=== PATIENT | female | born 1960 | race Caucasian/White ===

== ENCOUNTER 2017-07-09 09:37 | Inpatient (IN) | payer MEDICARE, MEDICAID ==
[~2017-07-09] VITALS: Ht 165.1 cm; Wt 85.0 kg
[~2017-07-09 09:37] MED LIST: AMIT25TA PO; BUPR150T3 PO; BUSP15TA47 PO; DULO30CA PO; FLUO10TA2 PO; FLUO1TAB3 PO; FLUO20CA19 PO; GABA-282 PO; HYDR-3363 PO; IBUP-1022 PO; OMEP40CA2 PO; OXYC-517 PO; SYNT75TA PO; TRAZ50TA11 PO
[2017-07-09] MEDS ORDERED: PERC7.5T11 PO (11:44)
[2017-07-09] MEDS ORDERED: GABA800T PO (11:44)
[2017-07-09] MEDS ORDERED: LEVO75TA4 PO (11:45)
[2017-07-09 15:05] VITALS: BP 120/65
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
[2017-07-09] MEDS ORDERED: MOM 30ML SUSPENSION UDC PO PRN (17:00)
[2017-07-09] MEDS ORDERED: MAALOX 30 ML SUSP *UDC PO PRN (17:00)
[2017-07-09] MEDS: PERCOCET 5MG/325MG TAB PO SCH ×2 (17:51→21:39)
[2017-07-09] MEDS: OMEPRAZOLE 20 MG CAP PO SCH (20:59)
[2017-07-09] MEDS: GABAPENTIN 400 MG CAP PO SCH (20:59)
[2017-07-09] MEDS: DULoxetine 30 MG CAP (CYMBALTA) PO SCH (20:59)
[2017-07-09 21:00] LABS: RENAL EPITHELIAL CELLS 2 /HPF; YEAST LIKE CELL URINE AUTO LARGE
[2017-07-09] MEDS: traZODone 50 MG TAB PO PRN (22:51)
[2017-07-10] MEDS: LEVOTHYROXINE 75MCG TABLET (0.075MG) PO SCH (06:05)
[2017-07-10 06:52] VITALS: BP 120/69
[2017-07-10] MEDS: GABAPENTIN 400 MG CAP PO SCH ×2 (08:01→16:22)
[2017-07-10] MEDS: OMEPRAZOLE 20 MG CAP PO SCH (08:02)
[2017-07-10] MEDS: PERCOCET 5MG/325MG TAB PO SCH ×3 (08:04→21:00)
[2017-07-10] MEDS ORDERED: PERCOCET 5MG/325MG TAB PO SCH (09:00)
--- NOTE | 2017-07-10 10:27 | HPEPDOC ---
[facility] Medical History & Physical Date of Admission Jul 09, 2017 History and Physical PCP: Dr Devin BENDER Pain Management Dr Octavio Cadet [place] ATTENDING: Dr. Valentin Townsend HPI: 56yoF transferred from [facility] admitted to [facility] for unspecified depressive disorder, being medically examined today. Pt states she has chronic LBP which has been uncontrolled. Pain management opinion is pending. Denies any fevers, chills, weakness, fatigue, BUSH, CP, SOB, cough, palpitations, abdominal pain, N/V /D or changes in bowel or bladder habits. PMHx: Chronic back pain- followed by pain mgmt [place] -Dr Rizo. COPD Depression History of prior suicide attempt x4 GERD Hypothyroidism Insomnia Right shoulder pain-followed by orthopedic surgery- Dr Hdez/physical therapy GERD PSHX: Knee surgery Left wrist laceration repair Multiple pain management procedures/epidural procedures DCS 03/16 Dr Rizo SOCHX: Resides in: [place], [place] Marital Status: Kids: 2 Employment: Homemaker Tobacco use: Quit 6 years ago ETOH: None in past 29 years Illicit Drugs: Denies IV Drug Use: Denies Tattoos done unprofessionally: Denies FAMHX: Mother: , unknown Father: , MVA Siblings: Alive, estranged Children: Alive, depression, anxiety, heroin use Unexpected deaths due to medical reasons: None. ROS: As noted in HPI, otherwise 11pt ROS of systems reviewed and remarkable only for menopausal PE: GEN: 56 yo F, appears stated age. Well-nourished, well developed. No acute distress. Alert and oriented x 3. Pleasant, interactive. HEENT: Normocephalic, atraumatic. Pupils are equal, round, and reactive to light. Extraocular movements are intact. No nystagmus appreciated. Sclera are nonicteric. Conjunctiva without injection. Nose midline. Nasal turbinates without bogginess. EACs both patent BL. TMs both visualized and carey with good cone of light, no bulging or erythema. No facial asymmetry. Moist mucous membranes. Dentition fair. Pharynx pink and moist, no cobblestoning. Neck supple , trachea midline. No lymphadenopathy or thyromegaly appreciated. CHEST: Regular rate and rhythm, +S1, +S2 LUNGS: Clear to auscultation bilaterally. No wheezes, rales, or rhonchi. Breathing appears symmetric and easy. Patient is speaking in full sentences. No accessory muscle use. ABD: Round, soft, non-tender, non-distended. +Bowel sounds throughout. No rebound or guarding. No costovertebral angle tenderness. EXT: Pulses 2+ bilaterally dorsalis pedis and radial. No lower extremity edema appreciated. SKIN: [place], dry, warm. Capillary refill <2sec. No rashes. NEURO: Alert and oriented x 3. Cranial nerves III-XII are intact. No focal deficits appreciated. EKG: from [place]. Labs from PSYCHIATRIC. WBC 8.98 Hgb13.0 HCT 40.0 Plt 254 Gluc 102 BUN 17 SCr 0.92 Na 141 K 3.9 Cl 106 CO2 26 CA 8.9 AST 25 ALT 25 TSH 11.30 Toxicology remarkable for opiates and benzodiazepine UA trace blood and LE A&P: 55yoF admitted to [facility] for unspecified depressive disorder 1. Psych. Plan per Psychiatry. EKG on file. Check UA completed/UC pending. 2. Chronic back pain. Continue outpt regimen of gabapentin 800 mg 3 times a day , Percocet 7.5/325 one tablet 3 times a day as needed. Continue outpatient follow-up with pain management. Pain management consultation is pending. ISTOP is accessed reference number [id number] indicating last filled date 07/04/17 # 90 tablets. 3. Follow up with PCP on discharge. Dr Beltran. 4. Hypothyroidism. Continue Synthroid 75 g daily. Possible noncompliance with meds, recheck TFTs. 5. GERD. Continue Prilosec 40 mg by mouth twice a day prn. 6. Staff member Aimee present throughout examination. Vital Signs Vital Signs Date Time Temp Pulse Resp B/P (MAP) Pulse Ox O2 Delivery O2 Flow Rate FiO2 07/10/17 09:30 16 07/10/17 08:04 Room Air 07/10/17 06:52 98.2 91 120/69 (86) 07/09/17 15:05 93 Laboratory Data Labs 24H Laboratory Tests 2 07/09/17 20:35: Urine Appearance CLOUDYH, Urine Color YELLOW, Urine pH 7.0, Urine Specific Howell 1.015, Urine Protein 2+H, Urine Glucose (UA) NEGATIVE, Urine Ketones NEGATIVE, Urine Urobilinogen 4.0H, Urine Bilirubin NEGATIVE, Urine Leukocyte Esterase 3+H, Urine Blood 1+H, Urine Nitrite POSITIVE, Urine WBC (Auto) TNTCH, Urine RBC (Auto) 65H, Urine Hyaline Casts (Auto) 0, Urine Bacteria (Auto) 1+H, Urine Squamous Epithelial Cells 2, Urine Renal Epithelial Cells 2, Urine Mucus ( Auto) SMALL, Urine Yeast-Like Cells (Auto) LARGEH, Urine Sperm (Auto) Microbiology Microbiology 07/09/17 Urine Culture, Received Pending Home Medications Scheduled Gabapentin (Gabapentin) 800 Mg Tab, 800 MG PO TID Levothyroxine Sodium (Synthroid) 75 Mcg Tab, 75 MCG PO DAILY Omeprazole (Omeprazole) 40 Mg Cap, 40 MG PO BID Scheduled PRN Oxycodone/Acetaminophen (Percocet 7.5-325 mg) 1 Tab Tab, 1 TAB PO TID PRN for PAIN Allergies Coded Allergies: No Known Allergies (Unverified , 09/05/16) Christi Gracia Jul 10, 2017 10:27
--- NOTE | 2017-07-10 11:28 | MHIPNPDOC ---
[facility] Progress Note Progress Note DATE OF SERVICE: 07/10/17 HISTORY: day 2 of admission after cutting and stabbing self and stopping medications for depression. VITAL SIGNS: See below. NEW TEST RESULTS: PT evaluation completed and walker provided. Still waiting for Pain consult. CURRENT MEDICATIONS: See below. MENTAL STATUS EXAMINATION: General appearance: Patient is a 56-year old female, who appears older than her stated age, white hair, ambulates with body pitched forward, in hospital garb, good eye contact Speech: spontaneous Thought processes: goal directed Thought content: focused on pain relief Abstract reasoning and computation:fair Description of associations: good Description of abnormal or psychotic thoughts:no psychotic symptoms illicited or observed. Pt has long h/o self-mutilation when angry or depressed. Judgment: poor Insight: fair Orientation: oriented x 4 Recent and remote memory: 2/3 word recall after 5 mins, mostly intact Attention span and concentration: impaired due to pain Fund of knowledge: full. Mood: "angry", depressed Affect: congruent. DIAGNOSES: 1. Major depressive disorder without psychotic features, recurrent, severe 2. Substance use disorder in complete remission ASSESSMENT:pt is less pain due to interventions. Slept last night and eating today. Plans to attend programming. Was very sore after PT eval and resting in room, awaiting pain consultation. Attended programming in the a.m. Mood is improving. MANAGEMENT PLAN: PT consult placed, waiting for result of pain consult. Will refer to neurology on discharge. Will plan to talk with son about patients needs and concerns. TIME SPENT: 25 minutes. Vital Signs Vital Signs Date Time Temp Pulse Resp B/P (MAP) Pulse Ox O2 Delivery O2 Flow Rate FiO2 07/10/17 09:30 16 07/10/17 08:04 Room Air 07/10/17 06:52 98.2 91 120/69 (86) 07/09/17 15:05 93 Laboratory Data 24H Labs Laboratory Tests 2 07/09/17 20:35: Urine Appearance CLOUDYH, Urine Color YELLOW, Urine pH 7.0, Urine Specific Allen 1.015, Urine Protein 2+H, Urine Glucose (UA) NEGATIVE, Urine Ketones NEGATIVE, Urine Urobilinogen 4.0H, Urine Bilirubin NEGATIVE, Urine Leukocyte Esterase 3+H, Urine Blood 1+H, Urine Nitrite POSITIVE, Urine WBC (Auto) TNTCH, Urine RBC (Auto) 65H, Urine Hyaline Casts (Auto) 0, Urine Bacteria (Auto) 1+H, Urine Squamous Epithelial Cells 2, Urine Renal Epithelial Cells 2, Urine Mucus ( Auto) SMALL, Urine Yeast-Like Cells (Auto) LARGEH, Urine Sperm (Auto) Current Medications Current Medications Acetaminophen (Tylenol Tab) 650 mg Q6HP PRN PO HEADACHE or DISCOMFORT; Start 07/09/17 at 17:00; Stop 08/08/17 at 16:59 Al Hydrox/Mg Hydrox/Simethicone (Mylanta) 30 ml Q4HP PRN PO HEARTBURN/ INDIGESTION; Start 07/09/17 at 17:00; Stop 08/08/17 at 16:59 Duloxetine HCl (Cymbalta) 30 mg QHS PO Last administered on 07/09/17 20:59; Start 07/09/17 at 21:00; Stop 08/08/17 at 20:59 Gabapentin (Neurontin) 800 mg TID PO Last administered on 07/10/17 08:01; Start 07/09/17 at 21:00; Stop 08/08/17 at 20:59 Home Med (Med Rec Complete!) ASDIRECTED XX ; Start 07/09/17 at 12:30; Stop at 12:30; Status DC Levothyroxine Sodium (Synthroid) 75 mcg DAILY@06 PO Last administered on 06:05; Start 07/10/17 at 06:00; Stop 08/09/17 at 05:59 Magnesium Hydroxide (Milk Of Magnesia) 30 ml DAILYPRN PRN PO CONSTIPATION; Start 07/09/17 at 17:00; Stop 08/08/17 at 16:59 Omeprazole (PriLOSEC) 40 mg BID PO Last administered on 07/10/17 08:02; Start 07/09/17 at 21:00; Stop 08/08/17 at 20:59 Oxycodone/ Acetaminophen (Percocet 5mg/ 325mg Tablet) 1.5 tab DAILY PO ; Start 07/10/17 at 09:00; Stop 07/10/17 at 09:00; Status DC Oxycodone/ Acetaminophen (Percocet 5mg/ 325mg Tablet) 1.5 tab TID PO Last administered on 07/10/17 08:04; Start 07/09/17 at 16:00; Stop 07/10/17 at 21 :01 Trazodone HCl (Desyrel) 50 mg QHSP PRN PO INSOMNIA Last administered on t 22:51; Start 07/09/17 at 17:00; Stop 08/08/17 at 16:59 Allergies Coded Allergies: No Known Allergies (Unverified , 09/05/16) Madison Lugo Jul 10, 2017 11:28
[2017-07-10 18:00] VITALS: BP 130/88
--- NOTE | 2017-07-10 18:01 | CR ---
DATE OF CONSULTATION: 07/10/2017 REFERRING PHYSICIAN: MARE Davison CHIEF COMPLAINT: Right buttock pain. HISTORY OF PRESENT ILLNESS: Lynn is a 56-year-old female with a long history of low back pain with right leg radicular symptoms. Has been receiving opioid pain medicine management and injection therapy with Dr. Stephens in [place]. States she was doing fairly well until about 2 months ago. States she had a right piriformis muscle injection and had a severe increase in right buttock pain. Pain is aggravated with ambulation. Pain is relieved somewhat with pain medication and lying on her left side. Rating pain level laying on her left side 7/10, VAS. Denies recent fever or illness. Denies bowel or bladder incontinence. PAST MEDICAL HISTORY: 1. Hypothyroidism. 2. Chronic back pain. 3. Depression. 4. COPD. 5. Prior suicide attempt times four. 6. GERD. 7. Right shoulder pain. PAST SURGICAL HISTORY: Knee surgery, and left wrist laceration repair. SOCIAL HISTORY: The patient lives in [place], [place]. She is a homemaker. Quit smoking 6 years ago. She is . She has two children. Stopped use of alcohol 29 years ago. Denies illicit drug use. FAMILY HISTORY: Mother and father . Children are alive but with a history of heroin use and depression / anxiety. REVIEW OF SYSTEMS: 11-point review of systems is negative except for what was described in HPI. PHYSICAL EXAMINATION: Awake, alert. Appears comfortable at rest. Vital signs: 98.2, 91, 18, BP 120/69. Cardiac, S1-S2. Normal rate and rhythm. Respiratory - lung sounds clear. Respirations nonlabored. Neuromuscular muscle strength over the lower extremities is 5/5. Muscle strength testing of the lower extremities produces increase in right low back pain. Inspection of spine, marked tenderness over the right mid buttock area. Nontender with palpation over LS axis and lumbar paraspinal. ASSESSMENT: Acute right piriformis muscle pain status post piriformis injection 2 months ago. PLAN: I would recommend adding muscle relaxant tizanidine 4 mg every 4 hours as needed for severe pain episodes. Consider CT of the right buttock region. Continue current chronic pain medication of oxycodone 5 mg 1.5 tablets three times a day. Continue gabapentin 800 three times a day. Continue Cymbalta 30 mg every night. Thank you for allowing us to participate in the care of your patient Lynn Dong. If you have any questions or concerns please do not hesitate to contact us. Sincerely, Thelma Michele Family nurse practitioner, pain management center. NICOLE
[2017-07-11] MEDS: GABAPENTIN 400 MG CAP PO SCH ×4 (00:08→20:22)
[2017-07-11] MEDS: OMEPRAZOLE 20 MG CAP PO SCH ×3 (00:09→20:23)
[2017-07-11] MEDS: ACETAMINOPHEN TAB 650MG DOSE (2X325MG) PO PRN ×2 (00:09→20:23)
[2017-07-11] MEDS: DULoxetine 30 MG CAP (CYMBALTA) PO SCH ×3 (00:09→20:23)
[2017-07-11] MEDS: LEVOTHYROXINE 75MCG TABLET (0.075MG) PO SCH (06:10)
[2017-07-11 06:33] VITALS: BP 117/63
[2017-07-11 08:10] LABS: THYROXINE (T4) 8.5 UG/DL (4.5-12.0)
[2017-07-11] MEDS: tiZANidine 4 MG TAB PO PRN ×3 (09:12→22:55)
[2017-07-11] MEDS: PERCOCET 5MG/325MG TAB PO SCH ×3 (09:15→22:56)
--- NOTE | 2017-07-11 14:07 | MHIPNPDOC ---
[facility] Progress Note Progress Note DATE OF SERVICE: 07/11/17 HISTORY: day 3 of admission for self-harm and exacerbation of depressive disorder VITAL SIGNS: See below. NEW TEST RESULTS: Pain Consult completed: ASSESSMENT: Acute right piriformis muscle pain status post piriformis injection 2 months ago. PLAN: I would recommend adding muscle relaxant tizanidine 4 mg every 4 hours as needed for severe pain episodes. Consider CT of the right buttock region. Continue current chronic pain medication of oxycodone 5 mg 1.5 tablets three times a day. Continue gabapentin 800 three times a day. Continue Cymbalta 30 mg every night. Thank you for allowing us to participate in the care of your patient Lnyn Dong. If you have any questions or concerns please do not hesitate to contact us. Sincerely, Thelma Michele Family nurse practitioner, pain management center. DD: Thelma Michele N.P. 07/10/171736 DT: BREE 07/10/171750 CURRENT MEDICATIONS: See below. MENTAL STATUS EXAMINATION: General appearance: Patient is a 56-year old female, who appears older than her stated age, white hair, ambulates with body pitched forward, in hospital garb, good eye contact Speech: spontaneous Thought processes: goal directed Thought content: focused on pain relief Abstract reasoning and computation:fair Description of associations: good Description of abnormal or psychotic thoughts:no psychotic symptoms illicited or observed. Pt has long h/o self-mutilation when angry or depressed. Judgment: poor Insight: fair Orientation: oriented x 4 Recent and remote memory: 2/3 word recall after 5 mins, mostly intact Attention span and concentration: impaired due to pain Fund of knowledge: full. Mood: "angry", depressed Affect: congruent. DIAGNOSES: 1. Major depressive disorder without psychotic features, recurrent, severe 2. Substance use disorder in complete remission 3. Acute Pain. ASSESSMENT:pt in severe pain at start of shift. Pain consult completed, results reviewed and implemented to assist pt in returning to wellness. Orders written for pain meds as recommended by the specialist. Pt assisted with morning meal and within 30 mins was able to attend treatment planning meeting even though she could not sit on her right buttock. pain 07/09. Pt signed MAE for son Leon at [phone]. Call placed and answered by a young male who indicated Leon was not at home. Message and return phone number left. No return call by end of the day. Pt feeling better at 1 p.m. but still not ambulating or able to attend groups due to pain. MANAGEMENT PLAN: continue meds, close observation and enc pt involvement in milieu. Support independence. increase Cymbalta to 30 mg bid. TIME SPENT: 25 minutes. Vital Signs Vital Signs Date Time Temp Pulse Resp B/P (MAP) Pulse Ox O2 Delivery O2 Flow Rate FiO2 07/11/17 09:50 16 07/11/17 06:33 98.1 84 117/63 (81) 07/10/17 08:04 Room Air 07/09/17 15:05 93 Laboratory Data 24H Labs Laboratory Tests 2 07/11/17 07:17: Thyroid Stimulating Hormone (TSH) 2.470, Free Thyroxine Index 2.8, Thyroxine (T4 ) 8.5, Triiodothyronine (T3) Uptake 33 Current Medications Current Medications Acetaminophen (Tylenol Tab) 650 mg Q6HP PRN PO HEADACHE or DISCOMFORT Last administered on 07/11/17 00:09; Start 07/09/17 at 17:00; Stop 08/08/17 at 16: 59 Al Hydrox/Mg Hydrox/Simethicone (Mylanta) 30 ml Q4HP PRN PO HEARTBURN/ INDIGESTION; Start 07/09/17 at 17:00; Stop 08/08/17 at 16:59 Duloxetine HCl (Cymbalta) 30 mg QHS PO Last administered on 07/11/17 00:09; Start 07/09/17 at 21:00; Stop 08/08/17 at 20:59 Gabapentin (Neurontin) 800 mg TID PO Last administered on 07/11/17 09:12; Start 07/09/17 at 21:00; Stop 08/08/17 at 20:59 Home Med (Med Rec Complete!) ASDIRECTED XX ; Start 07/09/17 at 12:30; Stop at 12:30; Status DC Levothyroxine Sodium (Synthroid) 75 mcg DAILY@06 PO Last administered on 06:10; Start 07/10/17 at 06:00; Stop 08/09/17 at 05:59 Magnesium Hydroxide (Milk Of Magnesia) 30 ml DAILYPRN PRN PO CONSTIPATION; Start 07/09/17 at 17:00; Stop 08/08/17 at 16:59 Omeprazole (PriLOSEC) 40 mg BID PO Last administered on 07/11/17 09:12; Start 07/09/17 at 21:00; Stop 08/08/17 at 20:59 Oxycodone/ Acetaminophen (Percocet 5mg/ 325mg Tablet) 1.5 tab DAILY PO ; Start 07/10/17 at 09:00; Stop 07/10/17 at 09:00; Status DC Oxycodone/ Acetaminophen (Percocet 5mg/ 325mg Tablet) 1.5 tab TID PO Last administered on 07/10/17 16:22; Start 07/09/17 at 16:00; Stop 07/10/17 at 21 :01; Status DC Oxycodone/ Acetaminophen (Percocet 5mg/ 325mg Tablet) 1.5 tab TID PO Last administered on 07/11/17 09:15; Start 07/11/17 at 09:00; Stop 07/18/17 at 08 :59 Tizanidine HCl (Zanaflex) 4 mg Q4HP PRN PO pain/spasm Last administered on 13:13; Start 07/11/17 at 09:00; Stop 08/10/17 at 08:59 Trazodone HCl (Desyrel) 50 mg QHSP PRN PO INSOMNIA Last administered on 22:51; Start 07/09/17 at 17:00; Stop 08/08/17 at 16:59 Allergies Coded Allergies: No Known Allergies (Unverified , 09/05/16) Madison Lugo Jul 11, 2017 14:07
[2017-07-11 18:47] VITALS: BP 108/55
[2017-07-12] MEDS: LEVOTHYROXINE 75MCG TABLET (0.075MG) PO SCH (06:12)
[2017-07-12 06:57] VITALS: BP 118/61
[2017-07-12] MEDS: OMEPRAZOLE 20 MG CAP PO SCH ×2 (08:03→22:36)
[2017-07-12] MEDS: GABAPENTIN 400 MG CAP PO SCH ×3 (08:03→22:39)
[2017-07-12] MEDS: PERCOCET 5MG/325MG TAB PO SCH ×3 (08:03→22:39)
[2017-07-12] MEDS: DULoxetine 30 MG CAP (CYMBALTA) PO SCH ×2 (08:03→22:39)
--- NOTE | 2017-07-12 08:55 | MHIPNPDOC ---
[facility] Progress Note Progress Note DATE OF SERVICE: 07/12/17 HISTORY: day 4 of admission for self-harm and decompensation after stopping medication. VITAL SIGNS: See below. NEW TEST RESULTS: UA negative CURRENT MEDICATIONS: See below. MENTAL STATUS EXAMINATION: General appearance: Patient is a 56-year old female, who appears older than her stated age, white hair, ambulates with body pitched forward, in hospital garb, good eye contact Speech: spontaneous Thought processes: goal directed Thought content: focused on pain relief Abstract reasoning and computation:fair Description of associations: good Description of abnormal or psychotic thoughts:no psychotic symptoms illicited or observed. Pt has long h/o self-mutilation when angry or depressed. Judgment: poor Insight: fair Orientation: oriented x 4 Recent and remote memory: 2/3 word recall after 5 mins, mostly intact Attention span and concentration: impaired due to pain Fund of knowledge: full. Mood: "angry", depressed Affect: congruent. DIAGNOSES: 1. Major depressive disorder without psychotic features, recurrent, severe 2. Substance use disorder in complete remission 3. Acute Pain. ASSESSMENT:Lynn reports a good night of rest last night. She has her leg/hip elevated with pillows and is more comfortable. She has c/o symptoms of burning on urination however UA was neg on 07/11 and 07/09. Instructed to follow up with PCP after discharge. Enc more fluids. Pt is tolerating increase in Cymbalta. Is able to identify benefit to medication. Pt has been out of bed and in the milieu as much as tolerated. She was provided a rolling walker to use while she is here which has improved her ambulation. On my 3rd attempt to speak with Lynn's son ticket writer was successful. All comments were prefaced with providing feedback to help improve the situation for Lynn and keep her from harming herself again. Son Leon became very defensive without cause and his tone kept getting increasingly louder until he was yelling and telling me about his health issues. I had only mentioned the need for dishes to be done quickly, to which he replied, "she can get up and do it herself'. He stated Lynn uses her pain as an excuse to not do things and stated "my and I do everything for her". When AA meetings were mentioned he immediately said there was nothing he could do to help with that as he does not have a vehicle. "She will have to take care of that". Then it was mentioned about her returning to [facility] and the importance of her taking her medication and staying on it consistently he became so upset he was yelling. Clip And Hanger Attacher asked him to lower his voice and began to talk very softly at which time Leon handed phone to a female but since ticket writer does not have a release for the female , the conversation could not continue. Leon could be heard saying "hang up the phone". When female got on the line she said that Leon just talks loud. It was clear he was having anger control problems and did not want any feedback from his mother's care givers. the matter of the stolen medication was never brought up. MANAGEMENT PLAN: continue Cymbalta titration. Pt will need neurology appt after discharge for 2nd opinion regarding her sciatic pain. Pt is referred for Case Mgt services as she needs to increase her access to social activities she once enjoyed. Family did not return ticket writer's call from yesterday. Will make another attempt to talk with son Leon. Case mgt services will be necessary for Lynn to have the support she needs that her family is unable to provide. Pt requested BuSpar be added to her med regime as she found it helpful in the past. Will begin med at 10 mg TID. TIME SPENT: 25 minutes. Vital Signs Vital Signs Date Time Temp Pulse Resp B/P (MAP) Pulse Ox O2 Delivery O2 Flow Rate FiO2 07/12/17 08:03 16 07/12/17 06:57 97.7 75 118/61 (80) 07/10/17 08:04 Room Air 07/09/17 15:05 93 Laboratory Data 24H Labs Laboratory Tests 2 07/11/17 16:50: Urine Appearance CLOUDYH, Urine Color YELLOW, Urine pH 5.0, Urine Specific [place] 1.025, Urine Protein 2+H, Urine Glucose (UA) NEGATIVE, Urine Ketones NEGATIVE, Urine Urobilinogen 2.0H, Urine Bilirubin NEGATIVE, Urine Leukocyte Esterase 3+H, Urine Blood 2+H, Urine Nitrite NEGATIVE, Urine WBC (Auto) TNTCH, Urine RBC (Auto) 84H, Urine Hyaline Casts (Auto) 0, Urine Bacteria (Auto) 1+H, Urine Squamous Epithelial Cells 1, Urine Amorphous Sediment SMALLH, Urine Mucus (Auto) SMALL, Urine Sperm (Auto) Current Medications Current Medications Acetaminophen (Tylenol Tab) 650 mg Q6HP PRN PO HEADACHE or DISCOMFORT Last administered on 07/11/17 20:23; Start 07/09/17 at 17:00; Stop 08/08/17 at 16: 59 Al Hydrox/Mg Hydrox/Simethicone (Mylanta) 30 ml Q4HP PRN PO HEARTBURN/ INDIGESTION; Start 07/09/17 at 17:00; Stop 08/08/17 at 16:59 Cefdinir (Omnicef) 300 mg BID PO ; Start 07/12/17 at 09:00; Stop 07/19/17 at 08:59; Status UNV Duloxetine HCl (Cymbalta) 30 mg BID PO Last administered on 07/12/17 08:03; Start 07/11/17 at 09:00; Stop 08/08/17 at 08:59 Duloxetine HCl (Cymbalta) 30 mg QHS PO Last administered on 07/11/17 00:09; Start 07/09/17 at 21:00; Stop 07/11/17 at 14:24; Status DC Gabapentin (Neurontin) 800 mg TID PO Last administered on 07/12/17 08:03; Start 07/09/17 at 21:00; Stop 08/08/17 at 20:59 Home Med (Med Rec Complete!) ASDIRECTED XX ; Start 07/09/17 at 12:30; Stop at 12:30; Status DC Levothyroxine Sodium (Synthroid) 75 mcg DAILY@06 PO Last administered on 06:12; Start 07/10/17 at 06:00; Stop 08/09/17 at 05:59 Magnesium Hydroxide (Milk Of Magnesia) 30 ml DAILYPRN PRN PO CONSTIPATION; Start 07/09/17 at 17:00; Stop 08/08/17 at 16:59 Omeprazole (PriLOSEC) 40 mg BID PO Last administered on 07/12/17 08:03; Start 07/09/17 at 21:00; Stop 08/08/17 at 20:59 Oxycodone/ Acetaminophen (Percocet 5mg/ 325mg Tablet) 1.5 tab DAILY PO ; Start 07/10/17 at 09:00; Stop 07/10/17 at 09:00; Status DC Oxycodone/ Acetaminophen (Percocet 5mg/ 325mg Tablet) 1.5 tab TID PO Last administered on 07/10/17 16:22; Start 07/09/17 at 16:00; Stop 07/10/17 at 21 :01; Status DC Oxycodone/ Acetaminophen (Percocet 5mg/ 325mg Tablet) 1.5 tab TID PO Last administered on 07/12/17 08:03; Start 07/11/17 at 09:00; Stop 07/18/17 at 08 :59 Tizanidine HCl (Zanaflex) 4 mg Q4HP PRN PO pain/spasm Last administered on 22:55; Start 07/11/17 at 09:00; Stop 08/10/17 at 08:59 Trazodone HCl (Desyrel) 50 mg QHSP PRN PO INSOMNIA Last administered on 22:51; Start 07/09/17 at 17:00; Stop 08/08/17 at 16:59 Allergies Coded Allergies: No Known Allergies (Unverified , 09/05/16) Madison Lugo Jul 12, 2017 08:55
[2017-07-12] MEDS: CEFDINIR 300 MG CAP (OMNICEF) PO SCH ×2 (10:31→22:39)
[2017-07-12] MEDS: tiZANidine 4 MG TAB PO PRN ×3 (10:33→22:39)
[2017-07-12] MEDS: busPIRone 10 MG TAB PO SCH ×2 (16:13→22:39)
[2017-07-12 18:00] VITALS: BP 128/73
[2017-07-12] MEDS: traZODone 50 MG TAB PO PRN (22:42)
[2017-07-12] MEDS: ALBUTEROL 90 MCG/ACT 8GM HFA INHALER INH PRN (22:55)
[2017-07-13] MEDS: LEVOTHYROXINE 75MCG TABLET (0.075MG) PO SCH (06:21)
[2017-07-13 06:56] VITALS: BP 134/78
[2017-07-13] MEDS: PERCOCET 5MG/325MG TAB PO SCH ×3 (08:08→20:23)
[2017-07-13] MEDS: CEFDINIR 300 MG CAP (OMNICEF) PO SCH ×2 (08:08→20:22)
[2017-07-13] MEDS: tiZANidine 4 MG TAB PO PRN ×2 (08:08→16:09)
[2017-07-13] MEDS: DULoxetine 30 MG CAP (CYMBALTA) PO SCH ×2 (08:08→20:22)
[2017-07-13] MEDS: busPIRone 10 MG TAB PO SCH ×3 (08:08→20:22)
[2017-07-13] MEDS: OMEPRAZOLE 20 MG CAP PO SCH ×2 (08:08→20:21)
[2017-07-13] MEDS: GABAPENTIN 400 MG CAP PO SCH ×3 (08:09→20:22)
[2017-07-13] MEDS: PHENAZOPYRIDINE 100 MG TAB PO SCH ×3 (10:25→20:22)
[2017-07-13] MEDS: ALBUTEROL 90 MCG/ACT 8GM HFA INHALER INH PRN (16:09)
[2017-07-13 18:00] VITALS: BP 129/70
[2017-07-13] MEDS ORDERED: ALBUTEROL SULFATE 2.5 MG/0.5 ML INH NEB SOLN INH SCH (21:00)
[2017-07-13] MEDS: traZODone 100 MG TAB PO PRN (22:04)
--- NOTE | 2017-07-13 22:07 | MHIPN ---
DATE: 07/13/2017 SUBJECTIVE: The patient states that she continues to be very depressed, feels hopeless and helpless. She tells me "I will be in this pain for the rest of my life." She state "I don't like myself and I don't think people like me." MENTAL STATUS EXAMINATION: This patient is alert and oriented times three. Eye contact is fair. Psychomotor activity is decreased. Verbally spontaneous. No formal thought disorder noted. Mood is depressed. Affect full range and appropriate. She is not psychotic, suicidal, or homicidal. Concentration is fair. Memory is intact. Insight and judgment are fair. DIAGNOSES: 1. Major depressive disorder without psychotic features, recurrent, severe. 2. Substance abuse disorder, in complete remission. TREATMENT PLAN: At this point, we will continue to monitor the patient for ongoing pretty severe depression. We will continue to titrate her medications as indicated. We will continue to monitor her for continued resolution of suicidal ideation. NICOLE
[2017-07-14] MEDS: LEVOTHYROXINE 75MCG TABLET (0.075MG) PO SCH (06:13)
[2017-07-14 06:58] VITALS: BP 135/65
[2017-07-14] MEDS: CEFDINIR 300 MG CAP (OMNICEF) PO SCH ×2 (08:21→21:14)
[2017-07-14] MEDS: GABAPENTIN 400 MG CAP PO SCH ×3 (08:21→21:14)
[2017-07-14] MEDS: PHENAZOPYRIDINE 100 MG TAB PO SCH ×3 (08:21→21:14)
[2017-07-14] MEDS: OMEPRAZOLE 20 MG CAP PO SCH ×2 (08:22→21:15)
[2017-07-14] MEDS: busPIRone 10 MG TAB PO SCH ×3 (08:22→21:14)
[2017-07-14] MEDS: tiZANidine 4 MG TAB PO PRN ×3 (08:22→21:16)
[2017-07-14] MEDS: DULoxetine 30 MG CAP (CYMBALTA) PO SCH ×2 (08:22→21:14)
[2017-07-14] MEDS: PERCOCET 5MG/325MG TAB PO SCH ×3 (08:24→21:15)
[2017-07-14] MEDS: IBUPROFEN 400 MG TAB PO PRN (13:44)
[2017-07-14] MEDS: ALBUTEROL SULFATE 2.5 MG/0.5 ML INH NEB SOLN INH PRN ×2 (15:02→22:38)
[2017-07-14 18:00] VITALS: BP 128/59
[2017-07-15 06:40] VITALS: BP 147/60
[2017-07-15] MEDS: LEVOTHYROXINE 75MCG TABLET (0.075MG) PO SCH (06:47)
[2017-07-15] MEDS: GABAPENTIN 400 MG CAP PO SCH ×3 (08:07→20:14)
[2017-07-15] MEDS: PERCOCET 5MG/325MG TAB PO SCH ×3 (08:08→20:15)
[2017-07-15] MEDS: tiZANidine 4 MG TAB PO PRN ×2 (08:08→20:15)
[2017-07-15] MEDS: DULoxetine 30 MG CAP (CYMBALTA) PO SCH ×2 (08:08→20:14)
[2017-07-15] MEDS: CEFDINIR 300 MG CAP (OMNICEF) PO SCH ×2 (08:08→20:14)
[2017-07-15] MEDS: busPIRone 10 MG TAB PO SCH ×3 (08:08→20:14)
[2017-07-15] MEDS: OMEPRAZOLE 20 MG CAP PO SCH ×2 (08:09→20:14)
--- NOTE | 2017-07-15 12:06 | MHIPNPDOC ---
[facility] Progress Note Progress Note DATE OF SERVICE: 07/15/17 HISTORY: day 7 of admission for going off antidepressant and actions of self- harm due to anger related to things going on in her household. VITAL SIGNS: See below. NEW TEST RESULTS: na. CURRENT MEDICATIONS: See below. MENTAL STATUS EXAMINATION: General appearance: Patient is a 56-year old female, who appears older than her stated age, long, white hair, ambulates with walker in hospital garb, good eye contact Speech: spontaneous Thought processes: goal directed Thought content: focused on pain relief Abstract reasoning and computation:fair Description of associations: good Description of abnormal or psychotic thoughts:no psychotic symptoms illicited or observed. Pt has long h/o self-mutilation when angry or depressed. Judgment: poor Insight: fair Orientation: oriented x 4 Recent and remote memory: 2/3 word recall after 5 mins, mostly intact Attention span and concentration: impaired due to pain Fund of knowledge: full. Mood: "pretty good". Affect: congruent. DIAGNOSES: 1. Major depressive disorder without psychotic features, recurrent, severe 2. Substance use disorder in complete remission 3. Acute Pain. ASSESSMENT:Met with Lynn for 1:1. She reports having a pretty good weekend. She is using a pillow to sit on which helps sometimes along with the pain meds and the walker. Assured pt I would provide a prescription for a walker on discharge. Discussed medications and reviewed doses, purpose and expected benefits. She appears much more calm and at ease than last week. Explained my efforts in explaining to the son what was going on and his inability to participate in the conversation. Explained main intention of call and that the subject of the grandson and his behavior was never discussed. Son had explained to Lynn that I hung upon them but that was not the case. He was in the back ground telling the to hang up and eventually she did, I was the last one to hand up the phone. Discussed with pt that if she wants son and to remain in her house she may need to make peace with the fact they are going to do the cleaning on their time. We discussed options for getting out to socialize and Lynn knows she can get a ride to a meeting at least once a week. She is also interested in the senior dances in her city. She thinks she can afford a cab to take her too and from some activities like Bingo. She was given information on Uber and Ly[employer] if available in her area. MANAGEMENT PLAN: we will plan to discharge on Saturday or via Medicaid cab when she is ready. Pt is requesting a referral to neurology and we will attempt to get her an appt in [place]. TIME SPENT: 25 minutes. Vital Signs Vital Signs Date Time Temp Pulse Resp B/P (MAP) Pulse Ox O2 Delivery O2 Flow Rate FiO2 07/15/17 09:00 18 07/15/17 06:40 98.6 70 147/60 (89) Room Air 07/09/17 15:05 93 Current Medications Current Medications Acetaminophen (Tylenol Tab) 650 mg Q6HP PRN PO HEADACHE or DISCOMFORT Last administered on 07/11/17 20:23; Start 07/09/17 at 17:00; Stop 07/13/17 at 13 :31; Status DC Al Hydrox/Mg Hydrox/Simethicone (Mylanta) 30 ml Q4HP PRN PO HEARTBURN/ INDIGESTION; Start 07/09/17 at 17:00; Stop 08/08/17 at 16:59 Albuterol Sulfate (Proventil Neb) 2.5 mg BIDP PRN INH SHORTNESS OF BREATH Last administered on 07/14/17 22:38; Start 07/14/17 at 14:53; Stop 08/13/17 at 14 :52 Albuterol Sulfate (Proventil Neb) 2.5 mg QHS INH Last administered on 21:23; Start 07/13/17 at 21:00; Stop 07/14/17 at 14:55; Status DC Albuterol Sulfate (Proventil, Ventolin Hfa) 2 puff Q6HP PRN INH WHEEZING Last administered on 07/13/17 16:09; Start 07/12/17 at 21:45; Stop 08/11/17 at 21 :44 Buspirone HCl (Buspar) 10 mg TID PO Last administered on 07/15/17 08:08; Start 07/12/17 at 16:00; Stop 08/11/17 at 15:59 Cefdinir (Omnicef) 300 mg BID PO Last administered on 07/15/17 08:08; Start 07/12/17 at 09:00; Stop 07/21/17 at 21:01 Duloxetine HCl (Cymbalta) 30 mg BID PO Last administered on 07/15/17 08:08; Start 07/11/17 at 09:00; Stop 08/08/17 at 08:59 Duloxetine HCl (Cymbalta) 30 mg QHS PO Last administered on 07/11/17 00:09; Start 07/09/17 at 21:00; Stop 07/11/17 at 14:24; Status DC Gabapentin (Neurontin) 800 mg TID PO Last administered on 07/15/17 08:07; Start 07/09/17 at 21:00; Stop 08/08/17 at 20:59 Home Med (Med Rec Complete!) ASDIRECTED XX ; Start 07/09/17 at 12:30; Stop at 12:30; Status DC Ibuprofen (Advil) 400 mg Q4HP PRN PO PAIN Last administered on 07/14/17 13:44 ; Start 07/13/17 at 13:30; Stop 08/12/17 at 13:29 Levothyroxine Sodium (Synthroid) 75 mcg DAILY@06 PO Last administered on 06:47; Start 07/10/17 at 06:00; Stop 08/09/17 at 05:59 Magnesium Hydroxide (Milk Of Magnesia) 30 ml DAILYPRN PRN PO CONSTIPATION; Start 07/09/17 at 17:00; Stop 08/08/17 at 16:59 Omeprazole (PriLOSEC) 40 mg BID PO Last administered on 07/15/17 08:09; Start 07/09/17 at 21:00; Stop 08/08/17 at 20:59 Oxycodone/ Acetaminophen (Percocet 5mg/ 325mg Tablet) 1.5 tab DAILY PO ; Start 07/10/17 at 09:00; Stop 07/10/17 at 09:00; Status DC Oxycodone/ Acetaminophen (Percocet 5mg/ 325mg Tablet) 1.5 tab TID PO Last administered on 07/10/17 16:22; Start 07/09/17 at 16:00; Stop 07/10/17 at 21 :01; Status DC Oxycodone/ Acetaminophen (Percocet 5mg/ 325mg Tablet) 1.5 tab TID PO Last administered on 07/15/17 08:08; Start 07/11/17 at 09:00; Stop 07/18/17 at 08 :59 Phenazopyridine HCl (Pyridium) 100 mg TID PO Last administered on 07/14/17 21 :14; Start 07/13/17 at 09:00; Stop 07/14/17 at 21:01; Status DC Tizanidine HCl (Zanaflex) 4 mg Q4HP PRN PO pain/spasm Last administered on 08:08; Start 07/11/17 at 09:00; Stop 08/10/17 at 08:59 Trazodone HCl (Desyrel) 50 mg QHSP PRN PO INSOMNIA Last administered on 22:42; Start 07/09/17 at 17:00; Stop 07/13/17 at 13:31; Status DC Trazodone HCl (Desyrel) 100 mg QHSP PRN PO INSOMNIA Last administered on 22:04; Start 07/13/17 at 13:30; Stop 08/12/17 at 13:29 Allergies Coded Allergies: No Known Allergies (Unverified , 09/05/16) Madison Lugo Jul 15, 2017 12:06
[2017-07-15 18:00] VITALS: BP 112/61
[2017-07-15] MEDS: traZODone 100 MG TAB PO PRN (21:32)
[2017-07-15] MEDS: IBUPROFEN 400 MG TAB PO PRN (21:35)
[2017-07-16] MEDS: LEVOTHYROXINE 75MCG TABLET (0.075MG) PO SCH (06:07)
[2017-07-16 06:43] VITALS: BP 117/79
[2017-07-16] MEDS: GABAPENTIN 400 MG CAP PO SCH ×3 (08:49→20:03)
[2017-07-16] MEDS: DULoxetine 30 MG CAP (CYMBALTA) PO SCH ×2 (08:49→20:03)
[2017-07-16] MEDS: OMEPRAZOLE 20 MG CAP PO SCH ×2 (08:49→20:03)
[2017-07-16] MEDS: CEFDINIR 300 MG CAP (OMNICEF) PO SCH ×2 (08:49→20:03)
[2017-07-16] MEDS: busPIRone 10 MG TAB PO SCH ×3 (08:49→20:03)
[2017-07-16] MEDS: PERCOCET 5MG/325MG TAB PO SCH ×3 (08:51→20:06)
--- NOTE | 2017-07-16 09:26 | MHIPNPDOC ---
[facility] Progress Note Progress Note DATE OF SERVICE: 07/16/17 HISTORY: day 8 of admission for self-mutilation and SI, noncompliance with treatment. VITAL SIGNS: See below. NEW TEST RESULTS: na CURRENT MEDICATIONS: See below. MENTAL STATUS EXAMINATION: General appearance: Patient is a 56-year old female, who appears older than her stated age, long, white hair, ambulates with walker in hospital garb, good eye contact Speech: spontaneous Thought processes: goal directed Thought content: focused on pain relief Abstract reasoning and computation:fair Description of associations: good Description of abnormal or psychotic thoughts:no psychotic symptoms illicited or observed. Pt has long h/o self-mutilation when angry or depressed. Judgment: poor Insight: fair Orientation: oriented x 4 Recent and remote memory: 2/3 word recall after 5 mins, mostly intact Attention span and concentration: impaired due to pain Fund of knowledge: full. Mood: "doing good" Affect: congruent. DIAGNOSES: 1. Major depressive disorder without psychotic features, recurrent, severe 2. Substance use disorder in complete remission 3. Acute Pain. ASSESSMENT:pt is visible in milieu, ambulating with more comfort by using rolling walker. Pt is attentive to personal needs. Appetite and sleep are both improving. She is getting along well with peers and particularly has been helpful to her roommate. Mood is stabilizing and pt demonstrates much more control over behavior than we saw upon admission. MANAGEMENT PLAN: Anticipate discharge tomorrow. Wounds are healing well. Pt has good plans for treatment adherence and more socialization in her life. Neurology consult for [place] neurologist entered for second opinion regarding acute right piriformis muscle pain s/p piriformis injection 2 months ago. TIME SPENT: 25 minutes. Vital Signs Vital Signs Date Time Temp Pulse Resp B/P (MAP) Pulse Ox O2 Delivery O2 Flow Rate FiO2 07/16/17 08:51 16 07/16/17 06:43 97.5 78 117/79 (92) 07/15/17 06:40 Room Air Current Medications Current Medications Acetaminophen (Tylenol Tab) 650 mg Q6HP PRN PO HEADACHE or DISCOMFORT Last administered on 07/11/17t 20:23; Start 07/09/17 at 17:00; Stop 07/13/17 at 13 :31; Status DC Al Hydrox/Mg Hydrox/Simethicone (Mylanta) 30 ml Q4HP PRN PO HEARTBURN/ INDIGESTION; Start 07/09/17 at 17:00; Stop 08/08/17 at 16:59 Albuterol Sulfate (Proventil Neb) 2.5 mg BIDP PRN INH SHORTNESS OF BREATH Last administered on 07/14/17 22:38; Start 07/14/17 at 14:53; Stop 08/13/17 at 14 :52 Albuterol Sulfate (Proventil Neb) 2.5 mg QHS INH Last administered on 21:23; Start 07/13/17 at 21:00; Stop 07/14/17 at 14:55; Status DC Albuterol Sulfate (Proventil, Ventolin Hfa) 2 puff Q6HP PRN INH WHEEZING Last administered on 07/13/17 16:09; Start 07/12/17 at 21:45; Stop 08/11/17 at 21 :44 Buspirone HCl (Buspar) 10 mg TID PO Last administered on 07/16/17 08:49; Start 07/12/17 at 16:00; Stop 08/11/17 at 15:59 Cefdinir (Omnicef) 300 mg BID PO Last administered on 07/16/17 08:49; Start 07/12/17 at 09:00; Stop 07/21/17 at 21:01 Duloxetine HCl (Cymbalta) 30 mg BID PO Last administered on 07/15/17 08:08; Start 07/11/17 at 09:00; Stop 07/15/17 at 12:00; Status DC Duloxetine HCl (Cymbalta) 30 mg QAM PO Last administered on 07/16/17 08:49; Start 07/16/17 at 09:00; Stop 08/15/17 at 08:59 Duloxetine HCl (Cymbalta) 30 mg QHS PO Last administered on 07/11/17 00:09; Start 07/09/17 at 21:00; Stop 07/11/17 at 14:24; Status DC Duloxetine HCl (Cymbalta) 60 mg QHS PO Last administered on 07/15/17 20:14; Start 07/15/17 at 21:00; Stop 08/14/17 at 20:59 Gabapentin (Neurontin) 800 mg TID PO Last administered on 07/16/17 08:49; Start 07/09/17 at 21:00; Stop 08/08/17 at 20:59 Home Med (Med Rec Complete!) ASDIRECTED XX ; Start 07/09/17 at 12:30; Stop at 12:30; Status DC Ibuprofen (Advil) 400 mg Q4HP PRN PO PAIN Last administered on 07/15/17 21:35 ; Start 07/13/17 at 13:30; Stop 08/12/17 at 13:29 Levothyroxine Sodium (Synthroid) 75 mcg DAILY@06 PO Last administered on 06:07; Start 07/10/17 at 06:00; Stop 08/09/17 at 05:59 Magnesium Hydroxide (Milk Of Magnesia) 30 ml DAILYPRN PRN PO CONSTIPATION; Start 07/09/17 at 17:00; Stop 08/08/17 at 16:59 Omeprazole (PriLOSEC) 40 mg BID PO Last administered on 07/16/17 08:49; Start 07/09/17 at 21:00; Stop 08/08/17 at 20:59 Oxycodone/ Acetaminophen (Percocet 5mg/ 325mg Tablet) 1.5 tab DAILY PO ; Start 07/10/17 at 09:00; Stop 07/10/17 at 09:00; Status DC Oxycodone/ Acetaminophen (Percocet 5mg/ 325mg Tablet) 1.5 tab TID PO Last administered on 07/10/17 16:22; Start 07/09/17 at 16:00; Stop 07/10/17 at 21 :01; Status DC Oxycodone/ Acetaminophen (Percocet 5mg/ 325mg Tablet) 1.5 tab TID PO Last administered on 07/16/17 08:51; Start 07/11/17 at 09:00; Stop 07/18/17 at 08 :59 Phenazopyridine HCl (Pyridium) 100 mg TID PO Last administered on 07/14/17 21 :14; Start 07/13/17 at 09:00; Stop 07/14/17 at 21:01; Status DC Tizanidine HCl (Zanaflex) 4 mg Q4HP PRN PO pain/spasm Last administered on 20:15; Start 07/11/17 at 09:00; Stop 08/10/17 at 08:59 Trazodone HCl (Desyrel) 50 mg QHSP PRN PO INSOMNIA Last administered on 22:42; Start 07/09/17 at 17:00; Stop 07/13/17 at 13:31; Status DC Trazodone HCl (Desyrel) 100 mg QHSP PRN PO INSOMNIA Last administered on 21:32; Start 07/13/17 at 13:30; Stop 08/12/17 at 13:29 Allergies Coded Allergies: No Known Allergies (Unverified , 09/05/16) Madison Lugo Jul 16, 2017 09:26
[2017-07-16] MEDS: ALBUTEROL SULFATE 2.5 MG/0.5 ML INH NEB SOLN INH PRN ×2 (10:35→23:05)
[2017-07-16] MEDS: tiZANidine 4 MG TAB PO PRN ×2 (15:57→20:03)
[2017-07-16 18:30] VITALS: BP 120/58
[2017-07-16] MEDS: traZODone 100 MG TAB PO PRN (22:28)
[2017-07-16] MEDS: IBUPROFEN 400 MG TAB PO PRN (22:28)
[2017-07-17] MEDS: LEVOTHYROXINE 75MCG TABLET (0.075MG) PO SCH (06:12)
[2017-07-17 06:21] VITALS: BP 143/65
[2017-07-17] MEDS: GABAPENTIN 400 MG CAP PO SCH (08:51)
[2017-07-17] MEDS: DULoxetine 30 MG CAP (CYMBALTA) PO SCH (08:51)
[2017-07-17] MEDS: CEFDINIR 300 MG CAP (OMNICEF) PO SCH (08:51)
[2017-07-17] MEDS: PERCOCET 5MG/325MG TAB PO SCH (08:51)
[2017-07-17] MEDS: OMEPRAZOLE 20 MG CAP PO SCH (08:51)
[2017-07-17] MEDS: busPIRone 10 MG TAB PO SCH (08:51)
[2017-07-17] MEDS ORDERED: TRAZ10TA PO (08:54)
[2017-07-17] MEDS ORDERED: DULO30CA PO ×2 (08:54)
[2017-07-17] MEDS ORDERED: BUSP10TA PO (08:54)
[2017-07-17] MEDS ORDERED: ZANA4TAB PO (09:39)
--- NOTE | 2017-07-17 15:36 | MHDSPDOC ---
[facility] Discharge Summary Discharge Summary DATE OF ADMISSION: Jul 09, 2017 at 13:32 DATE OF DISCHARGE: Jul 17, 2017 at 13:20 DISCHARGE DIAGNOSES: 1. Major depressive disorder without psychotic features, recurrent, severe 2. Substance use disorder in complete remission 3. Acute Pain. REASON FOR ADMISSION: pt was very distraught by the condition of her apartment that she shares with her sone and his . They do not clean up immediately like she likes. there had been arguing hin the home the night before. She decided to but herself with a dull knife which is something she has done at least 3 times in the past. She states she gets angry and then she starts to cut herself. Pt had a nerve block procedure 2-3 months ago and the results made her pain worse. She is in severe pain and taking Vicodin tid. Her pills come up missing and she suspects her grandson is stealing them as he has a drug abuse problem. She did not want designer/writer to notify police or the doctor. She is going to try to prevent him from returning to her home. She has asked him in the past not to come over. Pt explained when she gets angry she cuts herself. She had stopped her antidepressant several months ago without talking to her provider about it first. Pts injury included a slight puncture to the RUQ that was minimally bruised by the time she was seen here and several cuts to her forearm with the same dull knife. These cuts were superficial and healing. CONSULTANTS INVOLVED: Pain mental hygiene consultant, Physical Therapy TREATMENT AND PROGRESS ON THE UNIT : Pt arrived on the unit in severe pain. She had been without her medication for 48 hrs due to being transferred from facility to facility in search of a psychiatric bed. A pain consult was immediately placed and our hospitalist was consulted. Meds provided by our attending psychiatrist until consult completed. Pt had stopped psychiatric meds provided by [facility] so Cymbalta was restarted. Pt received education on starting and stopping meds and how it can affect treatment outcomes. Advised stopping this type of medication abruptly can cause serious problems such as profound depression. HOSPITAL COURSE: pt was very cooperative to all requests. She adjusted quickly to the unit and she attended programming regularly. Pt identified needs such as having more social interaction outside her home by attending AA meetings weekly and [employer] and [employer] dances as things she should resume doing that she had stopped. She stated first she has to get a second opinion regarding her nerve block as she cannot tolerate this pain for the rest of her life. She request a neurology consult. Pt attended to hygiene needs and rested as needed due to her pain. A physical therapy consult was completed to get pt assistance with a rolling walker to improve her ambulation. She tolerated resuming her psychiatric meds well. She began to show improvement after 3-4 days. A phone call was placed to her son Leon to see what assistance he could provided but that conversation did not go very well. He became very defensive saying "me and do everything for my mother. She uses that pain excuse all the time. If she doesn' t like something she can get up and do it herself". During the admission pt c/o s/s consistent with UTI and was started on antibiotic therapy. Tizanidine was started per the recommendation of the Pain mental hygiene consultant. DISCHARGE ASSESSMENT: Pt was provided an appt for neurology in [place] for next week with Dr. Baltazar. Pt will follow up for therapy and med mgt at the clinic in [place] that she is affiliated with and an appt was made for her. She received a prescription to obtain a rolling walker at home. She received 5 refills on her medications. She was encouraged to seek out activities that bring her pleasure and to spend time with people her age. Pt denied any thought or intent to harm herself upon discharge. She got along well with peers and she and her roommate will remain in contact via Face Book. MENTAL STATUS EXAMINATION ON DISCHARGE: General appearance: Patient is a 56-year old female, who appears older than her stated age, long, white hair, ambulates with walker in hospital gar, good eye contact Speech: spontaneous Thought processes: goal directed Thought content: focused on pain relief Abstract reasoning and computation:fair Description of associations: good Description of abnormal or psychotic thoughts:no psychotic symptoms illicited or observed. pt is no longer thinking of self-harm. Judgment: poor Insight: fair Orientation: oriented x 4 Recent and remote memory: 2/3 word recall after 5 mins, mostly intact Attention span and concentration: impaired due to pain Fund of knowledge: full. Mood: "great" Affect: congruent. MEDICATIONS ON DISCHARGE: - Cymbalta for 30 mg in a.m. and 60 mg at hs for depression/anxiety/pain - BuSpar for anxiety. - Trazodone for sleep. PLAN/FOLLOWUP ARRANGEMENTS: [facility]. The amount of time spent in the coordination of care for this patient was approximately 29 minutes. Vital Signs/I&Os Vital Signs Date Time Temp Pulse Resp B/P (MAP) Pulse Ox O2 Delivery O2 Flow Rate FiO2 07/17/17 09:30 18 07/17/17 06:21 98.8 72 143/65 (91) Room Air Laboratory Data Microbiology Microbiology 07/12/17 Urine Culture - Final, Complete Citrobacter Freundii 07/09/17 Urine Culture - Final, Complete Medications Scheduled Buspirone HCl (Buspirone HCl) 10 Mg Tab, 10 MG PO TID for ANXIETY for 7 Days, # 21 Duloxetine Hcl (Cymbalta) 30 Mg Cap, 30 MG PO QAM for MOOD for 7 Days, #7 do not stop medication abruptly Duloxetine Hcl (Cymbalta) 30 Mg Cap, 60 MG PO QHS for MOOD for 7 Days, #14 do not stop medication abruptly Gabapentin (Gabapentin) 800 Mg Tab, 800 MG PO TID, (Reported) Levothyroxine Sodium (Synthroid) 75 Mcg Tab, 75 MCG PO DAILY, (Reported) Omeprazole (Omeprazole) 40 Mg Cap, 40 MG PO BID, (Reported) Scheduled PRN Oxycodone/Acetaminophen (Percocet 7.5-325 mg) 1 Tab Tab, 1 TAB PO TID PRN for PAIN, (Reported) Tizanidine Hydrochloride (Zanaflex) 4 Mg Tab, 4 MG PO Q4HP PRN for pain/spasm for 7 Days, #42 take as needed for muscle spasms up to 6 times a day. Trazodone HCl (Trazodone HCl) 100 Mg Tab, 100 MG PO QHSP PRN for INSOMNIA for 7 Days, #7 take if necessary for insomnia Allergies Coded Allergies: No Known Allergies (Unverified , 09/05/16) Madison Lugo Jul 17, 2017 15:36
== END 2017-07-17 13:20 | disposition home or self-care (01) | DRG 885 ==
LOC: M ED 09:37 → M ED INP 13:32 → M PSY 14:50
PROVIDERS: ADMIT Psychiatry & Neurology Psychiatry; ATTEND Psychiatry & Neurology Psychiatry
DX: F33.2 Major depressive disorder, recurrent severe without psychotic features (principal); F19.21 Other psychoactive substance dependence, in remission; E03.9 Hypothyroidism, unspecified; J44.9 Chronic obstructive pulmonary disease, unspecified; K21.9 Gastro-esophageal reflux disease without esophagitis; M54.9 Dorsalgia, unspecified; Z79.899 Other long term (current) drug therapy; Z87.891 Personal history of nicotine dependence; Z91.5 Personal history of self-harm